=== PATIENT | female | born 1960 | race Caucasian/White ===

== ENCOUNTER → 2017-03-18 | Outpatient (CLI) | payer OTHER ==
--- NOTE | 2017-03-18 16:58 | WOMENS IMAGING REPORT ---
EXAM DESCRIPTION: BILAT SCREENING MAMMO W/CAD COMPLETED DATE/TIME: 03/18/2017 11:20 am REASON FOR STUDY: Z12.31, [id number] SCREENING MAMMO Z12.31 ENCNTR SCREEN MAMMOGRAM FOR MALIGNANT SAMANTHA PLASM OF CARLOS COMPARISON: 2010, 2012 TECHNIQUE: Standard craniocaudal and mediolateral oblique views of each breast recorded using TxtFeedbacka l acquisition. LIMITATIONS: None. FINDINGS: Findings present which are benign by mammographic criteria. No suspicious masses, calcifi cations or architectural distortion. Pertinent benign findings: Benign right breast parenchymal calcification Read with the assistance of CAD. .[facility] - R2 Cenova Version 1.3 .[facility] - R2 Cenova Version 1.3 .[facility] - R2 Cenova Version 2.4 .[facility] [place] Cenova Version 2.4 .[facility] - R2 Substation Operator Helper Generation Version 9.2 Benign mammographic findings may include one or more of the following: Smooth masses, popcorn/rim/co arse calcifications, asymmetries, post-procedure changes, and lesions with long-standing stability. IMPRESSION: BENIGN MAMMOGRAPHIC FINDINGS. BIRADS 2 BREAST DENSITY: b. There are scattered areas of fibroglandular density. BIRAD: 2 BENIGN FINDING(S) RECOMMENDATION: ROUTINE SCREENING Please consider bilateral screening tomosynthesis in February 2018 COMMENT: The patient has been notified of the results by letter per SA requirements. Additional no tification policies are in place for contacting patient with suspicious or incomplete findings. Quality ID #[id number]: The [employer] recommends an annual screening mammogram for women aged 40 years or over. This facility utilizes a reminder system to ensure that all patients receive reminder letters, and/or direct phone calls for appointments. This includes reminders for routine scr eening mammograms, diagnostic mammograms, or other Breast Imaging Interventions when appropriate. Th is patient will be placed in the appropriate reminder system. The [employer] (ACR) has developed recommendations for screening MRI of the breast s in certain patient populations, to be used in conjunction with mammography. Breast MRI surveillanc e may be appropriate for women with more than 20% lifetime risk of developing breast cancer as deter mined by genetic testing, significant family history of the disease, or history of mantle radiation f or Hodgkins Disease. ACR Practice Guidelines 2008. TECHNICAL DOCUMENTATION: FINDING NUMBER: (1) ASSESSMENT: (1) JOB ID: [id number] [employer]- All Rights Reserved
== END ==
LOC: WI 10:18
PROVIDERS: ATTEND Family Medicine
DX: Z12.31 Encounter for screening mammogram for malignant neoplasm of breast (principal)
CPT/HCPCS: 77067; G0202

== ENCOUNTER → 2020-07-21 | Outpatient (CLI) | payer OTHER ==
--- NOTE | 2020-07-21 13:56 | RADIOLOGY REPORT (SQ) ---
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 TECHNIQUE: Grayscale ultrasound, Doppler velocity and spectra, and color Doppler images acquired of the extra-cranial carotid and vertebral arteries. Images stored on PACS. LIMITATIONS: None. FINDINGS: RIGHT CAROTID CCA Velocities: Within normal limits. ICA Velocities Peak systolic 75 cm/s. End diastolic 32 cm/s. Proximal ICA/CCA peak systolic ratio 1.3. Grayscale demonstrates scattered eccentric plaque with less than 50% luminal stenosis. LEFT CAROTID CCA Velocities: Within normal limits. ICA Velocities Peak systolic 71 cm/s. End diastolic 29 cm/s. Proximal ICA/CCA peak systolic ratio 1.0. Grayscale demonstrates scattered eccentric hypoechoic plaque with less than 50% luminal stenosis. VERTEBRAL ARTERIES: Antegrade flow. Normal waveforms. SUBCLAVIAN ARTERIES: No finding. OTHER: 1.3 x 0.9 cm hypoechoic nodule on the right. IMPRESSION: 1. Mild scattered plaque with less than 50% bilateral ICA stenosis. 2. Antegrade vertebral arteries. 3. Partially evaluated 1.3 cm hypoechoic right thyroid nodule. Recommend dedicated thyroid ultrasou nd for further evaluation. COMMENT: Quality ID #[id number]: Velocity criteria are extrapolated from the diameter data as defined by t he Society of Radiologists in Ultrasound Consensus Conference. Radiology 2003: 229; 340-346. TECHNICAL DOCUMENTATION: JOB ID: [id number] 2010 [email or web address]- All Rights Reserved Reading location - IP/workstation name: [email or web address]
--- NOTE | 2020-07-22 09:56 | WOMENS IMAGING REPORT ---
EXAM DESCRIPTION: BILAT SCREENING MAMMO W/CAD IMAGES COMPLETED DATE/TIME: 07/21/2020 9:11 am REASON FOR STUDY: Z12.31 ENCOUNTER FOR SCREENING MAMMOGRAM FOR MALIGNANT NEOPLASM OF BREAST Z12.31 ENCNTR SCREEN MAMMOGRAM FOR MALIGNANT NEOPLASM OF [place] I25.10 ATHSCL HEART DISEASE OF [place] CORONARY ARTERY W/O AN COMPARISON: 03/18/2017 and 08/07/2013. EXAM PARAMETERS: Standard craniocaudal and mediolateral oblique views of each breast recorded using digital acquisition. Read with the assistance of CAD. .[facility] - Sales Department Manager Version 9.2 LIMITATIONS: None. FINDINGS: No suspicious masses, suspicious calcifications or architectural distortion. No areas of c oncern. IMPRESSION: NEGATIVE MAMMOGRAM. BIRADS 1 BREAST DENSITY: b. There are scattered areas of fibroglandular density. BIRAD: ASSESSMENT: 1 NEGATIVE RECOMMENDATION: ROUTINE SCREENING COMMENT: The patient has been notified of the results by letter per MQSA requirements. Additional no tification policies are in place for contacting patient with suspicious or incomplete findings. Quality ID #[id number]: The [employer] recommends an annual screening mammogram for women aged 40 years or over. This facility utilizes a reminder system to ensure that all patients receive reminder letters, and/or direct phone calls for appointments. This includes reminders for routine scr eening mammograms, diagnostic mammograms, or other Breast Imaging Interventions when appropriate. Th is patient will be placed in the appropriate reminder system. TECHNICAL DOCUMENTATION: FINDING NUMBER: (1) ASSESSMENT: (1) JOB ID: [id number] 2010 [employer]- All Rights Reserved Reading location - IP/workstation name: [email or web address]
== END ==
LOC: WI 08:49
PROVIDERS: ATTEND Family Medicine
DX: Z12.31 Encounter for screening mammogram for malignant neoplasm of breast (principal); I25.10 Atherosclerotic heart disease of native coronary artery without angina pectoris; I65.23 Occlusion and stenosis of bilateral carotid arteries; E04.1 Nontoxic single thyroid nodule
CPT/HCPCS: 77067; 93880

== ENCOUNTER → 2020-07-25 | Outpatient (CLI) | payer OTHER ==
--- NOTE | 2020-07-25 16:17 | RADIOLOGY REPORT (SQ) ---
EXAM DESCRIPTION: U/S THYROID/SFT TISS HD NECK IMAGES COMPLETED DATE/TIME: 07/25/2020 3:58 pm REASON FOR STUDY: E04.1 NONTOXIC SINGLE THYROID NODULE E04.1 NONTOXIC SINGLE THYROID NODULE COMPARISON: None. TECHNIQUE: Dynamic and static nicole-scale images acquired of the thyroid gland. Selected additional c olor/power Doppler images recorded. All images stored to PACS. LIMITATIONS: None. FINDINGS: RIGHT LOBE: Normal size. Homogeneous echotexture. Small spongiform lesion measured 1 x 1 x 1 cm. LEFT LOBE: Normal size. Homogeneous echotexture. Small spongiform lesion measured 1 x 0.3 x 0.4 cm. ISTHMUS: Normal size. Homogeneous echotexture. Small spongiform lesion measuring 1 x 1 x 1 cm. OTHER: No other significant finding. IMPRESSION: Multinodular goiter as described. These all are spongiform in configuration consistent with TR 1 lesions. No additional follow-up is needed based on current criteria. TECHNICAL DOCUMENTATION: JOB ID: [id number] 2010 [employer]- All Rights Reserved Reading location - IP/workstation name: [email or web address]
== END ==
LOC: RAD 15:37
PROVIDERS: ATTEND Family Medicine
DX: E04.2 Nontoxic multinodular goiter (principal)
CPT/HCPCS: 76536